=== PATIENT | male | born 1970 | race Caucasian/White ===

== ENCOUNTER 2018-02-06 18:18 | Inpatient (IN) | payer OTHER, MEDICAID ==
[~2018-02-06] VITALS: Ht 172.7 cm; Wt 84.4 kg
[~2018-02-06 18:18] MED LIST: ACET-2619 GT; ACET-8386 GT; AMLO-27 GT; ASCO500T45 GT; ATI.5 GT; BENA40TA17 GT; BISA10SU1 RC; CLON-528 TD; DIL100L GT; DOCU-299 GT; HYDR-1807 GT; LEVE100S GT; MAGN400S60 GT; METO100T22 GT; NUTR30LI7 GT; ZINC220C12 GT
[2018-02-06 20:35] VITALS: BP 139/83
[2018-02-06 20:40] VITALS: BP 139/83
--- NOTE | 2018-02-06 20:45 | NUR ---
PT ARRIVED IN THE UNIT AT 2030 AND WAS TRANSPORTED BY [facility]. PT ABLE TO OPEN EYES. PERRL. UNABLE TO MAKE NEEDS KNOWN. AFEBRILE. LUNG SOUNDS CLEAR. DOES NOT APPEAR TO BE IN RESPIRATORY DISTRESS. TRACH TO VENT WITH SETTINGS: AC12, FIO2 40%, TV 400 AND PEEP 5. SPUTUM CULTURE COLLECTED BY RT. S1+S2 HEARD. SR ON MONITOR. PULSES PALPABLE IN ALL EXTREMITIES. ABDOMEN ROUND, SOFT AND NONDISTENDED. BS ACTIVE IN ALL QUADRANTS. GTUBE IN PLACE. NO REDNESS AND DISCHARGE NOTED ON SITE. PT HAS COLOSTOMY IN PLACE. NO URINARY OUTPUT AT THIS TIME. PT UNABLE TO MOVE EXTREMITIES. SKIN IS INTACT BUT HAS AN OLD SCAR ON SACRAL COCCYX. PT HAS SCAB ON RIGHT THIGH. PT CAME IN WITH RIGHT THUMB PERIPHERAL IV ACCESS 22G. WILL START NEW PERIPHERAL IV ACCESS ON PT. MRSA SPECIMEN COLLECTED. WILL CONTINUE TO MONITOR PT.
[2018-02-06] MEDS ORDERED: ATOR20TA GT (20:59)
[2018-02-06] MEDS ORDERED: ALPOS OP (20:59)
[2018-02-06] MEDS ORDERED: INSU100S53 SC (20:59)
--- NOTE | 2018-02-06 21:00 | NUR ---
TORRE CATHETER INSERTED. URINE FLOW NOTED. PT HAD CLEAR AND LIGHT RIMA URINE. NO SEDIMENTS. SPECIMEN COLLECTED FOR URINE CULTURE. PT GTUBE FLUSHING WELL. PICTURES OF SKIN ISSUES TAKE.
--- NOTE | 2018-02-06 21:15 | NUR ---
DR. MCARTHUR AT BEDSIDE TO SEE PT. INFORMED HIM REGARDING PT. MD WILL PUT IN NEW ORDERS.
[2018-02-06] MEDS ORDERED: NACL 0.9% 1,000 ML IV SCH (21:20)
[2018-02-06] MEDS ORDERED: LORazepam 0.5 MG TAB GT PRN (21:30)
[2018-02-06] MEDS ORDERED: ACETAMINOPHEN 325 MG TAB GT PRN (21:30)
[2018-02-06] MEDS ORDERED: BISACODYL 10 MG SUPP RC PRN (21:30)
[2018-02-06] MEDS ORDERED: HYDROcodone/APAP 5/325 MG 1 TAB TAB GT PRN (21:30)
[2018-02-06] MEDS ORDERED: MAGNESIUM HYDROXIDE 2400 MG/30 ML UDC GT PRN (21:30)
[2018-02-06] MEDS ORDERED: CLON0.2T16 GT (21:42)
[2018-02-06] MEDS ORDERED: ALBUTEROL SULFATE/IPRATROPIU 3 ML SOL IH PRN (21:50)
[2018-02-06 21:59] LABS: HEMATOCRIT 36.8 % (36-52); HEMOGLOBIN 11.8 g/dL (12.0-18.0); MEAN CORPUSCULAR HEMOGLOBIN 29 pg (27-31); MEAN CORPUSCULAR HGB CONC 32 g/dL (33-37); MEAN CORPUSCULAR VOLUME 91.4 fL (80-94); PLATELET COUNT (AUTO) 116 K/uL (140-450); RED BLOOD CELL COUNT(AUTO) 4.02 MIL/uL (4.20-6.10)
[2018-02-06 22:00] VITALS: BP 140/87
--- NOTE | 2018-02-06 22:05 | NUR ---
EKG DONE AT BEDSIDE.
[2018-02-06 22:13] LABS: APPEARANCE,URINE CLEAR (CLEAR); BILIRUBIN,URINE NEGATIVE (NEGATIVE); BLOOD, URINE 2+ (NEGATIVE); COLOR,URINE YELLOW (YELLOW); LEUKOCYTE ESTERASE ,URINE NEGATIVE (NEGATIVE); NITRITE, URINE NEGATIVE (NEGATIVE); UGLUCOSE NEGATIVE (NEGATIVE)
[2018-02-06 22:25] LABS: PROTHROMBIN TIME 13.1 secs (10.8-13.4)
[2018-02-06 22:26] LABS: ALBUMIN 2.3 g/dL (3.4-5.0); CREATININE 0.7 mg/dL (0.7-1.3); TOTAL BILIRUBIN 0.6 mg/dL (0.0-1.0)
[2018-02-06 22:28] LABS: EOSINOPHILS % (MANUAL) 1 % (0-4); LYMPHOCYTES % (MANUAL) 7 % (20-46); MONOCYTES % (MANUAL) 5 % (5-12)
[2018-02-06 22:34] LABS: FREE T4 (FREE THYROXINE) 1.31 ng/dL (0.76-1.46); PHOSPHORUS 2.6 mg/dL (2.5-4.9); THYROID STIMULATING HORMONE 0.85 uIU/mL (0.34-3.74)
[2018-02-06 22:35] LABS: RBC,URINE 3-10 (FEW) /HPF (0-5); WBC,URINE 0-5 (RARE) /HPF (0-5)
[2018-02-06] MEDS ORDERED: LEVOFLOXACIN 750 MG/D5W PREMIX 150 ML IV SCH (22:55)
[2018-02-06] MEDS ORDERED: DEXTROSE 50% 50 ML SYR IVP PRN (23:05)
[2018-02-06 23:15] VITALS: BP 149/90
[2018-02-06] MEDS: DEXT 5% / NACL 0.45% 1,000 ML IV SCH (23:23)
[2018-02-06] MEDS: cloNIDine 0.1 MG TAB PO SCH (23:34)
[2018-02-06] MEDS ORDERED: LEVOFLOXACIN 750 MG/D5W PREMIX 150 ML IV ONE (23:51)
[2018-02-06] MEDS ORDERED: CLINDAMYCIN 600 MG/4 ML VIAL ONE (23:52)
[2018-02-07] VITALS (23 sets, daily range): BP systolic 110–175; BP diastolic 57–111
[2018-02-07] MEDS: CLINDAMYCIN 300 MG in DEXTROSE 5% 50 ML IV SCH ×2 (00:08→06:12)
--- NOTE | 2018-02-07 00:10 | NUR ---
VS STABLE AT THIS TIME. NO CHANGE IN CONDITION. PT AWAKE. SR ON MONITOR. TORRE CATHETER STILL DRAINING CLEAR AND LIGHT RIMA URINE. WILL CONTINUE TO MONITOR PT.
[2018-02-07] MEDS ORDERED: POTASSIUM CHLORIDE 10 MEQ TABER PO ONE (00:50)
--- NOTE | 2018-02-07 01:17 | NUR ---
INFORMED DR. MCARTHUR REGARDING CURRENT ORDER OF POTASSIUM THAT FORM NEEDS TO BE CHANGED TO LIQUID.
[2018-02-07] MEDS ORDERED: KCL 20 MEQ/WATER INJ PREMIX 200 ML IV SCH ×2 (02:30→10:00)
[2018-02-07] MEDS ORDERED: ONDANSETRON 4 MG/5 ML ORASYR GT PRN (03:00)
[2018-02-07] MEDS ORDERED: POTASSIUM CHLORIDE 20% 40 MEQ/15 ML UDC GT SCH (03:00)
--- NOTE | 2018-02-07 03:00 | NUR ---
PT VOMITED X1. EMESIS WAS CLEAR TO VERY LIGHT YELLOW IN COLOR. INFORMED DR. MCARTHUR AND WILL FOLLOW-UP WITH ANY NEW ORDER.
[2018-02-07] MEDS ORDERED: ONDANSETRON 4 MG/2 ML VIAL IVP PRN (03:20)
--- NOTE | 2018-02-07 04:55 | NUR ---
INFORMED DR. MCARTHUR REGARDING ELEVATED BP. WILL FOLLOW UP WITH ANY NEW ORDERS.
[2018-02-07] MEDS ORDERED: PIPER/TAZO 3.375GM/D5W PREMIX 50 ML IV SCH (05:00)
[2018-02-07] MEDS ORDERED: CLINDAMYCIN 600 MG/4 ML VIAL ONE (05:02)
[2018-02-07] MEDS ORDERED: FUROSEMIDE 40 MG/4 ML VIAL IVP SCH (05:30)
--- NOTE | 2018-02-07 05:30 | NUR ---
MORNING CARE PROVIDED TO PT. TOLERATED BEING TURNED. TORRE CATHETER CARE PROVIDED. VS STABLE AT THIS TIME. BP STILL SLIGHTLY ELEVATED. WILL CONTINUE TO MONITOR PT.
[2018-02-07 06:04] LABS: ANION GAP 8.8 (8-16); CARBON DIOXIDE 33.5 mmol/L (21-32); POTASSIUM 3.3 mmol/L (3.5-5.1)
[2018-02-07 06:05] LABS: CREATININE 0.6 mg/dL (0.7-1.3)
[2018-02-07 06:06] LABS: MAGNESIUM 1.9 mg/dL (1.8-2.4); PHOSPHORUS 2.8 mg/dL (2.5-4.9)
[2018-02-07 06:11] LABS: BASOPHILS % (AUTO) 0.2 % (0.0-2.0); EOSINOPHILS # (AUTO) 0.2 K/uL (0-0.4); EOSINOPHILS % (AUTO) 1.1 % (0.0-4.0); HEMATOCRIT 37.2 % (36-52); HEMOGLOBIN 12.2 g/dL (12.0-18.0); LYMPHOCYTES # (AUTO) 1.2 K/uL (2.0-11.5); LYMPHOCYTES % (AUTO) 8.3 % (20.5-51.1); MEAN CORPUSCULAR HEMOGLOBIN 30 pg (27-31); MEAN CORPUSCULAR HGB CONC 33 g/dL (33-37); MEAN CORPUSCULAR VOLUME 91.8 fL (80-94); MONOCYTES # (AUTO) 0.9 K/uL (0.8-1.0); MONOCYTES % (AUTO) 6.5 % (1.7-9.3); NEUTROPHILS # (AUTO) 12.2 K/uL (1.8-7.7); NEUTROPHILS % (AUTO) 83.9 % (42.2-75.2); PLATELET COUNT (AUTO) 115 K/uL (140-450); RED BLOOD CELL COUNT(AUTO) 4.05 MIL/uL (4.20-6.10); RED CELL DISTRIBUTION WIDTH 13.9 % (11.6-13.7); WHITE BLOOD COUNT (AUTO) 14.5 K/uL (4.8-10.8)
[2018-02-07] MEDS: cloNIDine 0.1 MG TAB PO SCH ×4 (06:13→23:43)
[2018-02-07] MEDS: BLOOD GLUCOSE MONITORING 1 DEV DEV FS SCH ×4 (06:35→21:22)
[2018-02-07] MEDS: INSULIN LISPRO SLIDING SCALE 100 UNITS/ML VIAL SUBQ PRN ×4 (06:36→21:23)
[2018-02-07] MEDS: ALBUTEROL SULFATE/IPRATROPIU 3 ML SOL IH SCH ×3 (06:55→19:25)
--- NOTE | 2018-02-07 06:55 | NUR ---
RECEIVED ON A TechulonSCAPE R860 VENTILATOR PLUGGED INTO RED OUTLET TOLERATING WELL WITHOUT INCIDENT TO A PORTEX DCT #8 AIRWAY SECURED WITH A CÉSAR TRACH TIE CUFF PRESSURE CHECKED NOTED AMBU BAG SECURED AND PLACED AT BEDSIDE LOC AWAKE SKIN TONE PINK BREATH SOUNDS RHONCHI BILATERAL WITH GOOD CHEST RISE DEEP TRACHEAL SUCTION FOR SMALL THICK PALE YELLOW SECRETIONS AIRWAY PATENT
--- NOTE | 2018-02-07 07:10 | NUR ---
RECEIVED REPORT FROM NOC RN FOR CONTINUITY OF CARE. PATIENT IN STABLE CONDITION. ON TRACH TO VENT, AC 12, FIO2 28%, TV 500 AND PEEP 5. SKIN WARM TO TOUCH WNL, TOENAILS THICKENED, +2 EDEMA, WITH MULTIPLE SCARRING TO SACRALCOCCYX, THICK SCABBING TO RIGHT THIGH, UNABLE TO PALPATE PEDAL PULSES. WITH PERIPHERAL IV TO RIGHT THUMB G 24 PATENT AND INTACT. LLQ COLOSTOMY NOTED. FC IN PLACE TO CLEAR YELLOW URINE IN MODERATE AMOUNT. LUQ G TUBE INTACT AND PATENT, CLAMPED AT THIS TIME. CALL LIGHT WITHIN REACH. BED AT LOWEST POSSIBLE POSITION. SAFETY MEASURES IN PLACE. WILL CONTINUE TO MONITOR PATIENT.
--- NOTE | 2018-02-07 07:10 | NUR ---
REPORT GIVEN TO MORNING RN FOR CONTINUITY OF CARE. VS STABLE AT THIS TIME.
--- NOTE | 2018-02-07 08:00 | NUR ---
DR. PLATA AND GROUP ROUNDING ON THE PATIENT. WILL FOLLOW UP WITH NEW ORDERS
[2018-02-07] MEDS ORDERED: DOCUSATE SODIUM 100 MG GELCAP PO SCH (09:00)
[2018-02-07] MEDS ORDERED: levETIRAcetam 100 MG/ML ORASYR GT SCH ×2 (09:00→10:21)
[2018-02-07] MEDS ORDERED: hydrALAZINE 25 MG TAB PO SCH (09:00)
--- NOTE | 2018-02-07 09:00 | NUR ---
DR. FERGUSON IN, SEEN AND EXAMINED PATIENT. WILL FOLLOW UP WITH ORDERS
[2018-02-07] MEDS: DOCUSATE 100 MG/10 ML UDC GT SCH (09:23)
[2018-02-07] MEDS: PHENYTOIN 100 MG/4 ML UDC GT SCH ×3 (09:24→17:14)
[2018-02-07] MEDS: amLODIPine 5 MG TAB GT SCH (09:25)
[2018-02-07] MEDS: BRIMONIDINE TARTRATE 0.2% OP 5 ML BTL OP SCH ×2 (09:25→21:00)
[2018-02-07] MEDS: HYDROCHLOROTHIAZIDE 25 MG TAB PO SCH (09:26)
[2018-02-07] MEDS: hydrALAZINE 25 MG TAB PO SCH ×3 (09:26→17:15)
[2018-02-07] MEDS: BENAZEPRIL 20 MG TAB PO SCH (09:27)
[2018-02-07] MEDS: INSULIN LANTUS 100 UNITS/ML 10 ML VIAL SUBQ SCH (09:30)
[2018-02-07] MEDS ORDERED: VANCOMYCIN PER PHARMACY MC PRN (09:30)
[2018-02-07] MEDS: LACTOBACILLUS RHAMNOSUS GG 1 EACH CAP PO SCH (09:31)
[2018-02-07] MEDS ORDERED: VANCOMYCIN 1GM/DEXT 5% PREMIX 200 ML IV SCH (10:10)
--- NOTE | 2018-02-07 10:12 | NUR ---
AWAKE STABLE NO EVIDENCE OF PULMONARY DISTRESS NOTED GOOD CHEST RISE DEEP TRACHEAL SUCTION FOR SMALL THICK PALE YELLOW SECRETIONS AIRWAY PATENT
--- NOTE | 2018-02-07 10:22 | NUR ---
PATIENT HAS BEEN SCREENED AND CATEGORIZED HIGH NUTRITION RISK. PATIENT WILL BE SEEN WITHIN 1-2 DAYS OF ADMISSION. 02/07/18 02/08/[address]
--- NOTE | 2018-02-07 11:10 | NUR ---
CALLED DR. HECTOR FERGUSON AT [facility] SPOKE TO LUIS SMITH MD
--- NOTE | 2018-02-07 11:13 | NUR ---
CALL BACK FROM DR. HECTOR FERGUSON REVIEWED ABG SAMPL REPORT AND VENTILATOR SETTINGS NEW ORDERS: INCREASE VT 450ml DECREASE FIO2 TO 25% ADD HHN THERAPY Q6WA MUCOMYST 1ml/20%
--- NOTE | 2018-02-07 11:45 | NUR ---
NOTED AT 1113 INCREASED VT TO 450ml DECREASED FIO2 TO 25% AWAKE NO EVIDENCE OF SOB NOTE BREATH SOUND DECREASED BILATERAL WITH GOOD CHEST RISE ULTRA SOUNDS PROCEDURE IN PROGRESS Addendum: 02/07/18 at 1157 by Frederick Aldrich RT STEVIE/YISSEL NOTIFIED OF UPDATED VENTILATOR SETTINGS AC 12 VT 450 PEEP 5 FIO2 25%
[2018-02-07] MEDS: DEXT 5% / NACL 0.45% 1,000 ML IV SCH (11:55)
[2018-02-07] MEDS: ACETYLCYSTEINE 20% (200 MG/ML) 200 MG/ML VIAL INH SCH ×2 (12:00→18:00)
[2018-02-07] MEDS: VANCOMYCIN 1GM/DEXT 5% PREMIX 200 ML IV SCH ×2 (12:58→21:24)
[2018-02-07] MEDS: Z-GUARD PASTE TP SCH ×2 (13:01→21:24)
--- NOTE | 2018-02-07 13:30 | NUR ---
AWAKE STABLE NO SOB NOTED AT THIS TIME DEEP TRACHEAL SUCTION FOR SMALL THICK YELLOW SECRETIONS AIRWAY PATENT TOLERATING VENTILATORY SUPPORT WELL WITHOUT INCIDENT AIRWAY PATENT
--- NOTE | 2018-02-07 14:28 | NUR ---
02/07/18 INITIAL ASSESSMENT COMPLETED PLEASE REFER TO NUTRITION ASSESSMENT UNDER CARE ACTIVITY FOR ESTIMATED NUTRITIONAL NEEDS. 1. CONTINUE TUBEFEEDING DIET WITH NUTREN PULMONARY AT GOAL RATE OF 55 ML/HR TOLERATED, PROVIDING 1320 TOTAL ML, 1980 KCAL, 90 GM PROTEIN, AND 1032ML FREE WATER. THIS IS ADEQUATE TO MEET 100% OF ESTIMATED NEEDS. 2. CONTINUE 150ML Q4H WATER FLUSHES 3. RD TO FOLLOW-UP 2-3 DAYS, HIGH RISK LUIS REYNA RD
--- NOTE | 2018-02-07 15:12 | NUR ---
AWAKE NO EVIDENCE OF RESPIRATORY DISTRESS NOTED AT THIS TIME BREATH SOUNDS EXP RHONCHI BILATERAL DEEP TRACHEAL SUCTION FOR MODERATE THICK YELLOW SECRETIONS AIRWAY PATENT
--- NOTE | 2018-02-07 17:12 | NUR ---
RESTING COMFORTABLY NO APPARENT RESPIRATORY DISTRESS NOTED GOOD CHEST RISE DEEP TRACHEAL SUCTION FOR MODERATE THIN YELLOW SECRETIONS AIRWAY PATENT
--- NOTE | 2018-02-07 19:21 | NUR ---
REPORT GIVEN TO NOC RN FOR CONTINUITY OF CARE. PATIENT IN STABLE CONDITION.
--- NOTE | 2018-02-07 19:25 | NUR ---
RECEIVED REPORT FROM MORNING RN FOR CONTINUITY OF CARE. VS STABLE AT THIS TIME. SR ON MONITOR. PT AFEBRILE. PERRL. TRACH TO VENT WITH SETTINGS AC12, FIO2 25%, TV 450, AND PEEP 5. LUNG SOUNDS DIMINISHED. NO SIGNS OF RESPIRATORY DISTRESS NOTED. S1+S2 HEARD. PULSES ARE PALPABLE IN ALL EXTREMITIES. SR ON MONITOR. ABDOMEN ROUND, SOFT AND NONDISTENDED. BS ACTIVE IN ALL QUADRANTS. GTUBE TO FEEDING. NO RESIDUAL NOTED. NUTREN PULMONARY RUNNING AT 20ML/HR. PT HAS COLOSTOMY IN PLACE BUT NO BM. TORRE CATHETER IN PLACE DRAINING CLEAR AND YELLOW URINE. TORRE CATHETER SECURED IN PLACE. PT HAS PERIPHERAL IV ACCESS ON RIGHT AC 20G AND LEFT THUMB 22G. ALL LINES ARE PATENT AND ASYMPTOMATIC. ALL SAFETY PRECAUTIONS ARE IN PLACE. HOB KEPT AT 30 DEGREES. BED AT LOW POSSIBLE POSITION. WILL CONTINUE TO MONITOR PT.
--- NOTE | 2018-02-07 19:40 | NUR ---
DR. MCARTHUR AT BEDSIDE TO SEE PT. WILL FOLLOW UP WITH ANY NEW ORDER.
--- NOTE | 2018-02-07 19:46 | NUR ---
RECEIVED PT STABLE ON VENT SUPPORT AT DOCUMENTED SETTINGS, SUCTIONED SCANT AMOUNTS OF THIN CLEAR WHITE SECRETIONS, HHN TX GIVEN, TOLERATED WELL, NO RESP DISTRESS OR SOB NOTED AT THIS TIME, PORTEX 8 TRACH SECURED/PATENT/MIDLINE, ALARMS SET AND AUDIBLE, AMBU BAG AT BEDSIDE, VENT PLUGGED INTO RED OUTLET, PULSE OX ON, WILL CONT TO MONITOR.
[2018-02-07] MEDS: ATORVASTATIN 20 MG TAB GT SCH (21:23)
[2018-02-07] MEDS: levETIRAcetam 100 MG/ML ORASYR GT SCH (21:23)
[2018-02-08] VITALS (18 sets, daily range): BP systolic 121–170; BP diastolic 74–127
--- NOTE | 2018-02-08 00:36 | NUR ---
VS STABLE AT THIS TIME. PT EYES ARE OPEN. DOES NOT APPEAR TO BE IN ANY PAIN OR IN ANY SIGNS OF DISTRESS. ALL SAFETY PRECAUTIONS ARE IN PLACE. NO RESIDUAL NOTED ON GTUBE. WILL CONTINUE TO MONITOR PT.
--- NOTE | 2018-02-08 00:48 | NUR ---
DR. MCARTHUR AT BEDSIDE. INFORMED THAT PT BG WAS ABOVE 200 FROM WHEN CHECKED AT 2100 AND PT STILL ON D5 0.45%NS. IV FLUIDS CHANGED. PT AWAKE AT THIS TIME.
[2018-02-08] MEDS: NACL 0.9% 1,000 ML IV SCH ×3 (00:58→15:28)
--- NOTE | 2018-02-08 04:00 | NUR ---
MORNING CARE PROVIDED TO PT. TORRE CARE PROVIDED. PT TOLERATED BEING TURNED AND REPOSITIONED FAIRLY. NO BM IN COLOSTOMY AT THIS TIME. SR ON MONITOR. WILL CONTINUE TO MONITOR PT AT THIS TIME. NO RESIDUAL ON GTUBE.
[2018-02-08] MEDS: VANCOMYCIN 1GM/DEXT 5% PREMIX 200 ML IV SCH (04:26)
[2018-02-08 05:13] LABS: BASOPHILS # (AUTO) 0.1 K/uL (0.00-0.22); BASOPHILS % (AUTO) 0.5 % (0.0-2.0); EOSINOPHILS # (AUTO) 0.3 K/uL (0-0.4); EOSINOPHILS % (AUTO) 2.8 % (0.0-4.0); HEMATOCRIT 37.7 % (36-52); HEMOGLOBIN 12.3 g/dL (12.0-18.0); LYMPHOCYTES # (AUTO) 1.2 K/uL (2.0-11.5); LYMPHOCYTES % (AUTO) 9.9 % (20.5-51.1); MEAN CORPUSCULAR HEMOGLOBIN 30 pg (27-31); MEAN CORPUSCULAR HGB CONC 33 g/dL (33-37); MEAN CORPUSCULAR VOLUME 91.9 fL (80-94); MONOCYTES # (AUTO) 0.8 K/uL (0.8-1.0); MONOCYTES % (AUTO) 6.8 % (1.7-9.3); NEUTROPHILS # (AUTO) 9.8 K/uL (1.8-7.7); PLATELET COUNT (AUTO) 134 K/uL (140-450); RED CELL DISTRIBUTION WIDTH 13.7 % (11.6-13.7); WHITE BLOOD COUNT (AUTO) 12.3 K/uL (4.8-10.8)
--- NOTE | 2018-02-08 05:50 | NUR ---
DR. JAMA AT BEDSIDE. WILL FOLLOW-UP WITH ANY NEW ORDERS.
[2018-02-08 05:59] LABS: ANION GAP 9.5 (8-16); CARBON DIOXIDE 30.1 mmol/L (21-32); CREATININE 0.6 mg/dL (0.7-1.3); POTASSIUM 3.6 mmol/L (3.5-5.1)
[2018-02-08 06:04] LABS: PHOSPHORUS 3.2 mg/dL (2.5-4.9)
[2018-02-08 06:20] LABS: T4 (THYROXINE) 8.4 ug/dL (4.5-12.0)
[2018-02-08] MEDS: ACETYLCYSTEINE 20% (200 MG/ML) 200 MG/ML VIAL INH SCH ×3 (06:30→18:00)
[2018-02-08] MEDS: ALBUTEROL SULFATE/IPRATROPIU 3 ML SOL IH SCH ×3 (06:30→19:44)
--- NOTE | 2018-02-08 06:30 | NUR ---
REC'D PT ON CARESCAPE VENT SETTINGS AC12 VT450 PEEP 5 FIO2 24% ALARMS ON AND AUDIBLE AND FUNCTIONING PROPERLY, AMBU BAG AT SIDE OF VENT, I\E TX GIVEN WITH DUONEB 3ML AND 20% 2ML MUCOMYST WITH NO ADVERSE REACTION POST TX, B\S ARE DIMINISHED BILATERALLY, SXN PT SMALL AMT OF CLEAR SECRETIONS, PT IS TRACH WITH PORTEX 8 AND SKIN INTEGRITY IS INTACT PT IS RESTING WITH NO SIGNS OF DISTRESS NOTED AT THIS TIME
[2018-02-08] MEDS: BLOOD GLUCOSE MONITORING 1 DEV DEV FS SCH ×4 (06:41→20:35)
[2018-02-08] MEDS: INSULIN LISPRO SLIDING SCALE 100 UNITS/ML VIAL SUBQ PRN ×4 (06:42→20:34)
[2018-02-08] MEDS: cloNIDine 0.1 MG TAB PO SCH ×3 (06:43→17:33)
--- NOTE | 2018-02-08 08:00 | NUR ---
INITIAL SHIFT ASSESSMENT DONE (SEE ASSESSMENT PART). AWAKE BUT NOT FOLLOWING COMMAND. NO SIGNS OF PAIN. ON VENTILATOR VIA TRACH, TOLERATING CURRENT SETTINGS WELL. O2 SAT 96-100%. SR ON MONITOR. SBP IN 140'S-150'S. NO ECTOPY NOTED. ON TUBE FEEDING VIA G-TUBE, TOLERATING WELL. NO RESIDUALS NOTED. HOB ELEVATED. UPDATED OF PLAN OF CARE. WILL CONTINUE TO MONITOR.
[2018-02-08] MEDS ORDERED: PROBIOTIC SCREEN 1 EA MISC MC PRN (08:50)
[2018-02-08] MEDS: DOCUSATE 100 MG/10 ML UDC GT SCH (09:00)
--- NOTE | 2018-02-08 09:00 | NUR ---
DR PLATA IS IN THE ROOM. UPDATED OF STATUS. NEW ORDER RECEIVE.
[2018-02-08] MEDS: PHENYTOIN 100 MG/4 ML UDC GT SCH ×3 (09:01→17:27)
[2018-02-08] MEDS: PANTOPRAZOLE 40 MG INJ VIAL IVP SCH (09:01)
[2018-02-08] MEDS: BENAZEPRIL 20 MG TAB PO SCH (09:02)
[2018-02-08] MEDS: BRIMONIDINE TARTRATE 0.2% OP 5 ML BTL OP SCH ×2 (09:02→21:00)
[2018-02-08] MEDS: amLODIPine 5 MG TAB GT SCH (09:03)
[2018-02-08] MEDS: HYDROCHLOROTHIAZIDE 25 MG TAB PO SCH (09:03)
[2018-02-08] MEDS: hydrALAZINE 25 MG TAB PO SCH ×3 (09:03→17:33)
[2018-02-08] MEDS: LACTOBACILLUS RHAMNOSUS GG 1 EACH CAP PO SCH (09:03)
[2018-02-08] MEDS: levETIRAcetam 100 MG/ML ORASYR GT SCH ×2 (09:04→20:41)
[2018-02-08] MEDS: Z-GUARD PASTE TP SCH ×2 (09:04→21:00)
[2018-02-08] MEDS: INSULIN LANTUS 100 UNITS/ML 10 ML VIAL SUBQ SCH (09:06)
--- NOTE | 2018-02-08 09:13 | NUR ---
VENT CHECK, NO SXN NEEDED AIRWAY IS PATENT AND PT IS RESTING
--- NOTE | 2018-02-08 10:00 | NUR ---
RESTING IN BED. NO SIGNS OF PAIN. TOLERATING VENTILATOR WELL. O2 SAT 98-99%. SR ON MONITOR. SBP IN 130'S-150'S. NO ECTOPY NOTED. HOB ELEVATED. WILL CONTINUE TO MONITOR.
--- NOTE | 2018-02-08 10:53 | NUR ---
VENT CHECK, SXN PT SMALL AMT OF CLEAR SECRETIONS, PT IS RESTING WITH NO SIGNS OF DISTRESS NOTED
[2018-02-08] MEDS ORDERED: FUROSEMIDE 20 MG/2 ML VIAL IVP SCH (11:00)
--- NOTE | 2018-02-08 12:00 | NUR ---
REASSESSMENT DONE. NEURO STATUS UNCHANGED. NO SIGNS OF PAIN. TOLERATING CURRENT VENTILATOR SETTINGS WELL. O2 SAT 98-100%. SR ON MONITOR. SBP IN 140'S-150'S. NO ECTOPY NOTED. TOLERATING TUBE FEEDING WELL. NO RESIDUALS NOTED. TF INCREASE TO 40 ML/HR. HOB ELEVATED. UPDATED OF PLAN OF CARE. WILL CONTINUE TO MONITOR.
--- NOTE | 2018-02-08 12:43 | NUR ---
PHARMACIST CALL THE UNIT AND STATED TO HOLD THE VANCOMYCIN DOSE FOR 1300.
[2018-02-08] MEDS: PIPER/TAZO 3.375GM/D5W PREMIX 50 ML IV SCH ×2 (12:56→21:00)
--- NOTE | 2018-02-08 13:00 | NUR ---
VENT CHECK, I\L TX GIVEN WITH DUONEB 3ML AND 20% 2ML MUCOMYST WITH NO ADVERSE REACTION POST TX B\S ARE DIMINISHED AND PT IS RESTING
--- NOTE | 2018-02-08 14:00 | NUR ---
RESTING IN BED. NO SIGNS OF PAIN. TOLERATING VENTILATOR WELL. O2 SAT 97-100%. ST ON MONITOR. SBP IN 150'S-160'S. NO ECTOPY NOTED. HOB ELEVATED. WILL CONTINUE TO MONITOR.
--- NOTE | 2018-02-08 15:06 | NUR ---
VENT CHECK, TRACH CARE DONE: CHANGED TRACH TIE,GAUZE AND INNER CANNULA PT IS RESTING WITH NO SIGNS OF DISTRESS NOTED AT THIS TIME
--- NOTE | 2018-02-08 15:30 | NUR ---
REPORT GIVEN TO GOODYEAR WELTER, YISSEL SLAUGHTER.
--- NOTE | 2018-02-08 15:45 | NUR ---
TRANSFER TO TELEMETRY UNIT ROOM 108 BY BED, WITH PORTABLE CLAM SHUCKER, AND BAGGED BY RT RADHA. ACCOMPANIED BY SACK SORTER GRACE AND .
--- NOTE | 2018-02-08 16:00 | NUR ---
RECEIVED PT FROM ICU TRACH TO VENT ,APHASIC OPEN HIS EYES OR VOICE NO S/S OF RESP DISTRESS NOTED NO DISCOMFORT NOTED . IV SITE RFA G 22 INTACT AND PATENT IV INFUSING WELL. G-TUBE SITE CLEAN AND DRY FEEDING WITH NUTRIENT PULMO AT THE RATE OF 40 TOLERATED WELL, WILL INCREASE TO 50 ML /HR AT 1800 ORDERED. F/C DRAIN CLEAR YELLOW URINE. COLOSTOMY BAG NO STOOL ONLY GAS. PLAN OF CARE DISCUSSED WITH THE PATIENT VITALS STABLE WILL CONTINUE TO MONITOR.
--- NOTE | 2018-02-08 17:03 | NUR ---
vent check, no sxn needed at this time pt getting bath
--- NOTE | 2018-02-08 18:11 | NUR ---
DUE MEDS GIVEN ,REPOSITIONED, KEPT PATIENT CLEAN AND DRY.
--- NOTE | 2018-02-08 19:15 | NUR ---
RECEIVED PT FROM KASANDRA RN PT NONVERBAL; HOB 30 DEGREE TRACH TO VENT TV 450 FIO2 24% PEEP 5 RR 12 PT SUCTIONED NECESSARY NOT SOB NOTED, G TUBE FEEDING WELL TOLERATED, ZERO RESIDUAL COLOSTOMY BAG EMPTY GAS ONLY REPOSITIONED, TORRE CATH DRAINING WELL YELLOW URINE, INITIAL ASSESSMENT DONE
[2018-02-08] MEDS: ATORVASTATIN 20 MG TAB GT SCH (20:42)
[2018-02-08] MEDS: VANCOMYCIN 1,250 MG in DEXTROSE 5% 250 ML IV SCH (20:47)
--- NOTE | 2018-02-08 21:00 | NUR ---
BLOOD SUGAR 154 COVERAGE WITH 2 UNITS REG INSULIN RESP THERAPY AT B ED SIDE GIVEN BREATHING TX
[2018-02-09] VITALS: BP 124/78
--- NOTE | 2018-02-09 | NUR ---
HOB 30 DEGREE ORAL CARE GIVEN WITH VAP KIT, REPOSITIONED Q2H TRACH TO VENT REMAIN SAME SETTING ON TELE ST
[2018-02-09] MEDS: cloNIDine 0.1 MG TAB PO SCH ×5 (00:31→23:24)
--- NOTE | 2018-02-09 03:00 | NUR ---
SPONGE BATH GIVEN LINEN CHANGED SUCTIONED NECESSARY
[2018-02-09 04:00] VITALS: BP 148/89
--- NOTE | 2018-02-09 04:00 | NUR ---
HOB 30 DEGREE ORAL CARE GIVEN WITH VAP KIT TRACH TO VENT REMAIN SAME SETTING NOT DISTRESS NOTED ;ON TELEMETRY SR
--- NOTE | 2018-02-09 05:00 | NUR ---
RESP THERAPY AT BED SIDE GIVEN BREATHING TX TRACH TO VENT SUCTIONED G TUBER ZERO RESIDUAL REPOSITIONED Q 2 H
[2018-02-09] MEDS: PIPER/TAZO 3.375GM/D5W PREMIX 50 ML IV SCH ×3 (05:18→20:39)
--- NOTE | 2018-02-09 06:23 | NUR ---
BLOOD SUGAR TEST 148 LINEN CHANGED REPOSITIONED TRACH TO VENT REMAIN SAME SETTING 02 SAT 1005
--- NOTE | 2018-02-09 07:15 | NUR ---
RECEIVED BEDSIDE REPORT FROM APPAREL PATTERNMAKER NURSE. PATIENT IS SLEEPING. NO SIGNS OF RESP DISTRESS. PATIENT ON TRACH TO VENT. VT IS 450. FIO2 24 RR 18 PEEP 5. PATIENT IS APHASIC. BEDBOUND. SACRAL COCCYX SCAR. IV ON R AC 20G INFUSING NS AT 80ML/HR, CLEAN DRY AND INTACT. IV ON L THUMB 18G SALINE LOCK, CLEAN, DRY AND INTACT. TORRE IN PLACE. COLOSTOMY BAG, CLEAN, DRY AND INTACT. NUTREN PULMONARY AT 50ML/HR AND 150 WATER FLUSH Q4HR. GTUBE IS CLEAN, DRY AND INTACT. TELE MONITOR IN PLACE. CONTINUOUS O2SAT. BED IN LOW POSITION. WILL CONTINUE TO MONITOR THE PATIENT. RT AT BEDSIDE.
[2018-02-09 07:16] LABS: BASOPHILS % (AUTO) 0.4 % (0.0-2.0); EOSINOPHILS # (AUTO) 0.1 K/uL (0-0.4); EOSINOPHILS % (AUTO) 1.4 % (0.0-4.0); HEMATOCRIT 36.3 % (36-52); HEMOGLOBIN 12.3 g/dL (12.0-18.0); LYMPHOCYTES # (AUTO) 1.8 K/uL (2.0-11.5); LYMPHOCYTES % (AUTO) 23.4 % (20.5-51.1); MEAN CORPUSCULAR HEMOGLOBIN 30 pg (27-31); MEAN CORPUSCULAR HGB CONC 34 g/dL (33-37); MEAN CORPUSCULAR VOLUME 89.6 fL (80-94); MONOCYTES % (AUTO) 12.8 % (1.7-9.3); NEUTROPHILS # (AUTO) 4.7 K/uL (1.8-7.7); PLATELET COUNT (AUTO) 168 K/uL (140-450); RED BLOOD CELL COUNT(AUTO) 4.06 MIL/uL (4.20-6.10); WHITE BLOOD COUNT (AUTO) 7.5 K/uL (4.8-10.8)
[2018-02-09] MEDS: ALBUTEROL SULFATE/IPRATROPIU 3 ML SOL IH SCH ×3 (07:16→19:45)
[2018-02-09] MEDS: ACETYLCYSTEINE 20% (200 MG/ML) 200 MG/ML VIAL INH SCH ×3 (07:19→18:00)
--- NOTE | 2018-02-09 07:20 | NUR ---
RECEIVED PT ON CARESCAPE ON A/C 12 VT 450 PEEP 5 FIO2 24 ALARMS ARE ON AND AUDIBLE BMV HOB PTS TRACH PORTEX 8 IS SECURE PT IN HF QUIET HHN GIVEN I\L BS RHONCI CONT. POX IN PLACE VENT PLUGGED INTO RED OUTLET
[2018-02-09 07:46] LABS: MAGNESIUM 1.8 mg/dL (1.8-2.4); PHOSPHORUS 2.6 mg/dL (2.5-4.9)
[2018-02-09 08:00] VITALS: BP 142/92
[2018-02-09] MEDS: BLOOD GLUCOSE MONITORING 1 DEV DEV FS SCH ×4 (08:10→20:47)
[2018-02-09 08:41] LABS: ANION GAP 9.7 (8-16); CARBON DIOXIDE 29.2 mmol/L (21-32); CREATININE 0.7 mg/dL (0.7-1.3)
[2018-02-09 08:49] LABS: POTASSIUM 2.9 mmol/L (3.5-5.1)
[2018-02-09] MEDS: NACL 0.9% 1,000 ML IV SCH (09:10)
[2018-02-09] MEDS: levETIRAcetam 100 MG/ML ORASYR GT SCH ×2 (09:13→20:39)
[2018-02-09] MEDS: DOCUSATE 100 MG/10 ML UDC GT SCH (09:15)
[2018-02-09] MEDS: PANTOPRAZOLE 40 MG INJ VIAL IVP SCH (09:15)
[2018-02-09] MEDS: LACTOBACILLUS RHAMNOSUS GG 1 EACH CAP PO SCH (09:15)
[2018-02-09] MEDS: BENAZEPRIL 20 MG TAB PO SCH (09:16)
[2018-02-09] MEDS: PHENYTOIN 100 MG/4 ML UDC GT SCH ×3 (09:17→17:50)
[2018-02-09] MEDS: HYDROCHLOROTHIAZIDE 25 MG TAB PO SCH (09:18)
[2018-02-09] MEDS: hydrALAZINE 25 MG TAB PO SCH ×3 (09:19→17:50)
[2018-02-09] MEDS: amLODIPine 5 MG TAB GT SCH (09:20)
[2018-02-09] MEDS: INSULIN LANTUS 100 UNITS/ML 10 ML VIAL SUBQ SCH (09:24)
[2018-02-09] MEDS: BRIMONIDINE TARTRATE 0.2% OP 5 ML BTL OP SCH ×2 (09:25→20:40)
[2018-02-09] MEDS: INSULIN LISPRO SLIDING SCALE 100 UNITS/ML VIAL SUBQ PRN ×4 (09:25→20:47)
[2018-02-09] MEDS: Z-GUARD PASTE TP SCH (09:26)
[2018-02-09] MEDS: VANCOMYCIN 1,250 MG in DEXTROSE 5% 250 ML IV SCH ×2 (09:49→21:39)
--- NOTE | 2018-02-09 10:01 | NUR ---
CHECKED FOR PLACEMENT OF GTUBE WITH SWOOSH. NO RESIDUAL. ADMINISTERED 20ML WATER BEFORE AND AFTER ADMINISTRATION OF MEDICATIONS. ALL MEDS CRUSHED AND PLACED IN GTUBE. PATIENT TOLERATED WELL. CLEANED R LEG WITH NS AND PLACED ZGUARD WHERE THERE IS SCABS. BED IN LOW POSITION. CALL LIGHT WITHIN REACH. WILL CONTINUE TO MONITOR THE PATIENT. PATIENT BEING TURNED BY CNAS
[2018-02-09] MEDS ORDERED: POTASSIUM CHLORIDE 40 MEQ, LIDOCAINE 1% 25 MG in NACL 0.9% 250 ML IV SCH (11:30)
[2018-02-09 12:00] VITALS: BP 108/75
--- NOTE | 2018-02-09 12:02 | NUR ---
PATIENT IS SLEEPING. NO SIGNS OF DISTRESS ON TRACH TO VENT. FNS VISIT. MAY CHANGE DIET RECOMMENDATIONS D/T BS OF 324. BED IN LOW POSITION. WILL ADMINISTER MEDS ORDERED.
--- NOTE | 2018-02-09 12:49 | NUR ---
CHECKED FOR PLACEMENT OF GTUBE USING THE SWOOSH. NO RESIDUAL. CRUSHED AND ADMINISTERED MEDS. PATIENT TOLERATED WELL. WILL CONTINUE TO MONITOR THE PATIENT. BED IN LOW POSITION.
--- NOTE | 2018-02-09 12:52 | NUR ---
WOUND CARE EVALUATION NOTES: REASON FOR EVALUATION: SCARRING TO RLE SKIN ASSESSMENT DONE ON THIS 48 Y/O MALE PATIENT ADMITTED TO [facility], WITH INITIAL DIAGNOSIS OF VOMITING AND ELEVATED WBC. PAST MEDICAL HISTORY INCLUDE ANOXIC BRAIN INJURY, QUADRIPLEGIC, AND DM. ALL ABOVE INFORMATION WAS OBTAINED FROM THE ADMISSION H&P. LABS ARE WBC 7.5, H/H 12.3/36.3, GLUCOSE 176, AND ALBUMIN 2.3. PATIENT IS AWAKE. SKIN WARM TO TOUCH, THICKENED TOENAILS, NO EDEMA, NO HAIR GROWTH AND BILATERAL PEDAL PULSES PRESENT. TORRE CATHETER PATENT AND INTACT TO RIMA COLORED URINE IN MODERATE AMOUNT. PLAN OF CARE AND PRESSURE PREVENTIVE MEASURES DISCUSSED WITH AND PRIMARY NURSE. INTEGUMENTARY: TRACH SITE FIORELLA-STOMA SKIN CLEAN AND INTACT GT SITE FIORELLA-STOMA SKIN CLEAN AND INTACT MID LOWER ABDOMEN ILEOSTOMY FIORELLA-STOMA SKIN CLEAN AND INTACT, FUNCTIONING, SMALL AMOUNT LIGHT YELLOW LIQUID STOOL NOTICE. INTERTRIGO TO R/L GROINS SACRALCOCCXY OLD HEALED SCAR RIGHT ANTERIOR THIGH DRY LOOS SCABS RIGHT HALLUX ON CORNER PORTION OF NAIL DRY BROWN SCAB 1X0.5 CM RECOMMENDATIONS: -APPLY HYDRAGARD TO R/L GROINS, SACRALCOCCXY, RIGHT ANTERIOR THIGH BID AND LEAVE IT OPEN TO AIR. -PAINT RIGHT HALLUX TOE NAIL WITH BETADINE SOLUTION BIDWC AND ASHTYN -TURN AND REPOSITION PATIENT Q2H -ASSESS AND MONITOR SKIN CONDITION DURING POSITION CHANGE, PLEASE PAY ATTENTION TO SACRALCOCCYX AREA. -OFFLOAD BILATERAL HEELS BY PLACING PILLOWS UNDER CALVES AT ALL TIMES, UNLESS OTHERWISE CONTRAINDICATED -PRESSURE REDISTRIBUTION SURFACE THERAPY -KEEP SKIN CLEAN AND DRY AT ALL TIMES. RECOMMENDATIONS DISCUSSED WITH PRIMARY RN WILL FOLLOW UP PATIENT Q 7 -10 DAYS AND PRN. PLEASE CONTACT WOUND CARE NURSE FOR ANY QUESTION OR CHANGES IN WOUND CONDITION
--- NOTE | 2018-02-09 13:44 | NUR ---
02/09/18 RD FOLLOW UP COMPLETED PLEASE REFER TO NUTRITION ASSESSMENT UNDER CARE ACTIVITY FOR ESTIMATED NUTRITIONAL NEEDS. 1. RECOMMEND DIABETISOURCE AC 1.2 AT A GOAL RATE OF 70 ML/HR. STARTING AT 20 ML, INCREASE 10-20 ML Q6H. -THIS WILL PROVIDE 1680 ML, 2016 KCAL, 100 GM PROTEIN, MEETING 100% OF PATIENTS ESTIMATED NEEDS. 2. FLUSH WATER [address] TO FOLLOW-UP 2-3 DAYS, HIGH RISK LUIS REYNA RD
--- NOTE | 2018-02-09 13:50 | NUR ---
ADMINISTERED MED TO PATIENT. IV IS CLEAN, DRY AND INTACT. WILL CONTINUE TO MONITOR THE PATIENT.
--- NOTE | 2018-02-09 15:01 | NUR ---
PATIENT IS SLEEPING. NO SIGNS OF DISTRESS. BED IN LOW POSITION. WILL CONTINUE TO MONITOR THE PATIENT.
--- NOTE | 2018-02-09 15:12 | NUR ---
CLEANSED R/GROIN AREA, SACRAL COCCYX AREA, AND R THIGH AND PLACED HYDROGUARD. PUT BETADINE ON L BIG TOE. BED IN LOW POSITION. CALL LIGHT WITHIN REACH. WILL CONTINUE TO MONITOR THE PATIENT.
[2018-02-09] MEDS: HYDRAGUARD CREAM TP SCH (15:14)
--- NOTE | 2018-02-09 15:30 | NUR ---
ADMINISTERED DIABETISOURCE AT 20ML HR. AT 2130 INCREASE THE FEEDING BY 15 IF RESIDUAL IS LESS THAN 150. WATER FLUSH 100 Q4HRS. WILL ENDORSE TO STOCK CHECKERER NURSE.
[2018-02-09 16:00] VITALS: BP 121/68
--- NOTE | 2018-02-09 17:19 | NUR ---
vent check, no sxn needed and airway is patent and pt is resting
--- NOTE | 2018-02-09 18:09 | NUR ---
CHECKED GTUBE PLACEMENT WITH SWOOSH. NO RESIDUAL. ADMINISTERED MEDS. PATIENT TOLERATED WELL. BED IN LOW POSITION. WILL CONTINUE TO MONITOR THE PATIENT.
--- NOTE | 2018-02-09 19:11 | NUR ---
GAVE BEDSIDE REPORT TO LITHOGRAPH PRINTER NURSE. PATIENT IS IN STABLE CONDITION.
--- NOTE | 2018-02-09 19:15 | NUR ---
RECEIVED PT ASLEEP, OPEN EYES TO TOUCH, APHASIC, WITH TRACH TO VENT, VITAL SIGNS STABLE, NO SIGNS OF RESP DISTRESS, SUCTION SECRETION PRN, IVF INFUSING WELL, G-TUBE FEEDING ON GOING AT 20ML/H, HOB ELEVATED AT ALL TIMES, TORRE CATH IN PLACE WITH CLEAR YELLOW OUTPUT, PT CONTRACTED, REPOSITIONED Q2H AND OFFLOAD PRESSURES AREAS, SAFETY MEASURES IN PLACE, ALL NEEDS ANTICIPATED.
[2018-02-09 20:00] VITALS: BP 140/90
[2018-02-09] MEDS: ATORVASTATIN 20 MG TAB GT SCH (20:39)
--- NOTE | 2018-02-09 21:44 | NUR ---
NO G-TUBE RESIDUAL NOTED, TUBE FEEDING INCREASED TO 35ML/H WITH 100ML FREE WATER FLUSH Q4H ORDERED, KEEP HOB ELEVATED AT ALL TIMES, MONITORED CLOSELY.
--- NOTE | 2018-02-09 23:41 | NUR ---
NO G-TUBE RESIDUAL NOTED, VITAL SIGNS STABLE, DUE CATAPRES ADMINISTERED, COLOSTOMY BAG INTACT WITH SMALL SOFT STOOL NOTED, ORAL CARE DONE USING VAP KIT, CONTINUE TO REPOSITIONED Q2H AND OFFLOAD PRESSURE AREAS, MONITORED CLOSELY. Addendum: 02/10/18 at 0533 by Samuel Tavares RN NO STOOL NOTED, JUST LOTS OF GAS ON COLOSTOMY BAG.
[2018-02-10] VITALS: BP 137/75
[2018-02-10] MEDS: HYDRAGUARD CREAM TP SCH ×2 (00:31→12:40)
[2018-02-10] MEDS: NACL 0.9% 1,000 ML IV SCH ×3 (00:35→13:05)
--- NOTE | 2018-02-10 03:36 | NUR ---
VITAL SIGNS STABLE, NO SIGNS OF RESP DISTRESS, FLACC-0, NO RESIDUAL TO G-TUBE, TUBE FEEDING RATE INCREASED TO 50ML/H ORDERED, CONTINUE TO MONITOR CLOSELY.
[2018-02-10 04:00] VITALS: BP 110/80
[2018-02-10] MEDS: PIPER/TAZO 3.375GM/D5W PREMIX 50 ML IV SCH ×2 (04:13→12:41)
[2018-02-10] MEDS: cloNIDine 0.1 MG TAB PO SCH ×2 (05:26→12:00)
--- NOTE | 2018-02-10 05:40 | NUR ---
BLOOD SUGAR CHECKED WITH 236 RESULT, WILL COVER WITH RISS, NO STOOL NOTED IN COLOSTOMY BAG, LOTS OF GAS ONLY, MILK OF MAGNESIA GIVEN PRN, MONITORED CLOSELY.
[2018-02-10] MEDS: INSULIN LISPRO SLIDING SCALE 100 UNITS/ML VIAL SUBQ PRN ×2 (05:53→12:34)
[2018-02-10] MEDS: BLOOD GLUCOSE MONITORING 1 DEV DEV FS SCH ×3 (06:39→16:30)
[2018-02-10] MEDS: ALBUTEROL SULFATE/IPRATROPIU 3 ML SOL IH SCH ×2 (06:59→13:03)
--- NOTE | 2018-02-10 07:00 | NUR ---
RECEIVED PT ON VENT WITH SETTINGS CHARTED BREATH SOUNDS PRESENT BILAT SCATTERD RALES SXN PT WITH MIN TO MOD AMT OFF WHITE SECS TRACH SITE SECURE AMBU BAG AT BEDSIDE VENT PLUGGED INTO RED OUTLET WILL CONTINUE TO MONITOR PT ON VENT
--- NOTE | 2018-02-10 07:25 | NUR ---
PT SLEEPING, NO SIGNS OF DISTRESS, REPORT GIVEN TO YISSEL PASTOR FOR CONTINUITY OF CARE.
--- NOTE | 2018-02-10 07:35 | NUR ---
RECEIVED REPORT FROM LOS SHIFT RN. PT RESTING IN BED. SKIN DRY AND WARM TO TOUCH. VS WNL. SPONTANEOUS EYES OPENING. LUNGS SOUND DIMINISHED ON AUSCULTATION. NOTED ON TRACH TO VENT AC 12 FIO2 24%TV 450 PEEP 5. AT SPO2 98% AT THIS TIME. NO ACUTE RESPIRATORY DISTRESS NOTED. NO CHANGE IN LOC. ABDOMEN SOFT ROUND AND NON-TENDER. G-TUBE IN PLACE AT LUQ, 0 RESIDUAL. FLUSHES GOOD. DIABETISOURCE RUNNING AT 5O ML/HR. COLOSTOMY BAG NOTED ON LEFT UPPER QUADRANT. NO STOOL NOTED AT THIS TIME. EDEMATOUS LOWER EXTREMITIES NOTED +1. RIGHT AC 20 G AND LEFT THUMB 22G. BOTH LINES INTACT. NS RUNNING AT 50 ML/HR. INTACT SKIN. KEPT HOB ELEVATED. BED IN LOW POSITION LOCKED. WILL CONTINUE TO MONITOR.
[2018-02-10] MEDS: ACETYLCYSTEINE 20% (200 MG/ML) 200 MG/ML VIAL INH SCH ×2 (07:57→14:00)
[2018-02-10 08:00] VITALS: BP 110/74
[2018-02-10 08:50] LABS: BASOPHILS % (AUTO) 0.5 % (0.0-2.0); EOSINOPHILS # (AUTO) 0.4 K/uL (0-0.4); HEMATOCRIT 36.1 % (36-52); LYMPHOCYTES # (AUTO) 2.2 K/uL (2.0-11.5); LYMPHOCYTES % (AUTO) 24.5 % (20.5-51.1); MEAN CORPUSCULAR HEMOGLOBIN 30 pg (27-31); MEAN CORPUSCULAR HGB CONC 33 g/dL (33-37); MEAN CORPUSCULAR VOLUME 90.4 fL (80-94); MONOCYTES # (AUTO) 1.2 K/uL (0.8-1.0); MONOCYTES % (AUTO) 13.5 % (1.7-9.3); NEUTROPHILS # (AUTO) 5.3 K/uL (1.8-7.7); NEUTROPHILS % (AUTO) 57.5 % (42.2-75.2); PLATELET COUNT (AUTO) 194 K/uL (140-450); RED CELL DISTRIBUTION WIDTH 13.7 % (11.6-13.7); WHITE BLOOD COUNT (AUTO) 9.2 K/uL (4.8-10.8)
[2018-02-10 09:04] LABS: ANION GAP 10.5 (8-16); CARBON DIOXIDE 29.5 mmol/L (21-32); CREATININE 0.9 mg/dL (0.7-1.3)
[2018-02-10] MEDS: DOCUSATE 100 MG/10 ML UDC GT SCH (09:17)
[2018-02-10] MEDS: PHENYTOIN 100 MG/4 ML UDC GT SCH ×3 (09:18→17:00)
[2018-02-10] MEDS: levETIRAcetam 100 MG/ML ORASYR GT SCH (09:20)
[2018-02-10] MEDS: amLODIPine 5 MG TAB GT SCH (09:21)
[2018-02-10] MEDS: PANTOPRAZOLE 40 MG INJ VIAL IVP SCH (09:22)
[2018-02-10] MEDS: HYDROCHLOROTHIAZIDE 25 MG TAB PO SCH (09:23)
[2018-02-10] MEDS: BRIMONIDINE TARTRATE 0.2% OP 5 ML BTL OP SCH (09:25)
[2018-02-10] MEDS: LACTOBACILLUS RHAMNOSUS GG 1 EACH CAP PO SCH (09:26)
[2018-02-10] MEDS: BENAZEPRIL 20 MG TAB PO SCH (09:26)
[2018-02-10] MEDS: hydrALAZINE 25 MG TAB PO SCH ×3 (09:30→17:00)
[2018-02-10] MEDS: INSULIN LANTUS 100 UNITS/ML 10 ML VIAL SUBQ SCH (09:37)
--- NOTE | 2018-02-10 10:40 | NUR ---
Cinema Operator notes: I attempted to contact patient's sister Bee Fay at to discuss and gather patient's information. There was No response from Patient's sister and I left her my contact information and request for a call back.
--- NOTE | 2018-02-10 10:51 | NUR ---
PT RESTING IN BED COMFORTABLY. NO ACUTE RESPIRATORY DISTRESS NOTED. SPO2 100% HR 83. NO CHANGE IN LOC. WILL CONTINUE TO MONITOR.
--- NOTE | 2018-02-10 11:15 | NUR ---
Repacker Notes: I call Nelly Chandra at I spoke to Elías from Admissions to inform him about Patient's discharge today. Per Elías Patient is to return to facility with transport arrange by [facility] [employer] Dive Training Instructor if possible after 5:00pm to [address], under the accepting Dr. Pelletier.
--- NOTE | 2018-02-10 11:20 | NUR ---
Kick Boxer Notes: I contact Patient's Sister Bee Fay at , I discuss Patient's status, updates and discharge for today 02/10/18 back to current SNF ([facility]). Per Patient's sister she was thankful for patient's update and call to notified her of Patient's discharge back to facility today. Patient's Sister was on agreement and did not have any questions for these science writer at the time.
--- NOTE | 2018-02-10 11:50 | NUR ---
Decating Machine Operator Notes: manager fraud Payam was aware of Patient's discharge and agreed to arrange Patient's transport back to current facility [facility] if possible after 5:00pm . These script writer also made aware charge nurse Morena of these information.
[2018-02-10 12:00] VITALS: BP 108/61
[2018-02-10] MEDS ORDERED: POTASSIUM CHLORIDE 20% 40 MEQ/15 ML UDC GT SCH (12:00)
--- NOTE | 2018-02-10 13:32 | NUR ---
PT RESTING IN BED COMFORTABLY. NO CHANGE IN LOC. WILL CONTINUE TO MONITOR.
[2018-02-10] MEDS ORDERED: Hydraguard TP (13:42)
[2018-02-10] MEDS ORDERED: LEVO500T2 IV (13:42)
[2018-02-10] MEDS ORDERED: ORE25 PO (13:42)
[2018-02-10] MEDS ORDERED: Vancomycin Per Pharmacy MC (14:16)
[2018-02-10] MEDS ORDERED: KCL 20 MEQ/WATER INJ PREMIX 100 ML IV SCH (15:00)
[2018-02-10 17:00] VITALS: BP 118/80
--- NOTE | 2018-02-10 17:00 | NUR ---
PATIENT REPORT GIVEN TO [facility] IN [facility]
--- NOTE | 2018-02-10 17:07 | NUR ---
CONTIBNUED TO MONITOR PT ON VENT WITH SETTINGS CHARTED BREATH SOUNDS PRESENT BILAT SXN PT WITH MIN AMT ANCELMO PENAMBAMBER BAG BEDSIED VENT PLUGGED INTO RED OUTLET PT TRANSFERD OUT BY TRANSPORT TEAM
--- NOTE | 2018-02-10 17:30 | NUR ---
PATIENT DISCHARGED TO [facility] [place] PATIENT PICKED UP BY [facility]. TORRE CATHETER DISCONTINUED. IV LINE LEFT IN PLACE AND INTACT. PATIENT LEFT WITH ALL HIS BELONGINGS AND DISCHARGE PAPERS. PATIENT LEFT IN STABLE CONDITION
== END 2018-02-10 17:30 | DRG 871 ==
LOC: MIC 20:30 → MTU 02-08 15:50
PROVIDERS: ADMIT General Practice; ATTEND General Practice
PROC: 5A1945Z Respiratory Ventilation, 24-96 Consecutive Hours (ICD-10-PCS; principal; 2018-02-06)
DX: A41.9 Sepsis, unspecified organism (principal); J69.0 Pneumonitis due to inhalation of food and vomit; N17.0 Acute kidney failure with tubular necrosis; E43 Unspecified severe protein-calorie malnutrition; J96.20 Acute and chronic respiratory failure, unspecified whether with hypoxia or hypercapnia; R53.2 Functional quadriplegia; D68.59 Other primary thrombophilia; Z99.11 Dependence on respirator [ventilator] status; E87.1 Hypo-osmolality and hyponatremia; G93.1 Anoxic brain damage, not elsewhere classified; J98.11 Atelectasis; E86.0 Dehydration; I10 Essential (primary) hypertension; G40.909 Epilepsy, unspecified, not intractable, without status epilepticus; D69.6 Thrombocytopenia, unspecified; E87.6 Hypokalemia; K76.0 Fatty (change of) liver, not elsewhere classified; E11.69 Type 2 diabetes mellitus with other specified complication; L30.9 Dermatitis, unspecified; E11.51 Type 2 diabetes mellitus with diabetic peripheral angiopathy without gangrene; L30.4 Erythema intertrigo; N28.1 Cyst of kidney, acquired; Z93.1 Gastrostomy status; Z93.0 Tracheostomy status; Z93.3 Colostomy status; Z86.73 Personal history of transient ischemic attack (TIA), and cerebral infarction without residual deficits; Z74.01 Bed confinement status; Z79.4 Long term (current) use of insulin; Z68.28 Body mass index [BMI] 28.0-28.9, adult
CPT/HCPCS: 36415; 36600; 71045; 76604; 76700; 80048; 80053; 80185; 80202; 81001; 82150; 82803; 82948; 83036; 83605; 83690; 83735; 83880; 84100; 84436; 84439; 84443; 84479; 84484; 85025; 85610; 85730; 87040; 87070; 87077; 87081; 87086; 87186; 87205; 93005; 93925; 93970; 94002; 94003; 94640; C9113; J1815; J1940; J1956; J2001; J2405; J2543; J3370; J3480; J3490; J7030; J7060; J7608; J7620; Q0092